=== PATIENT | female | born 1940 | race Two or more races ===

== ENCOUNTER 2017-11-21 08:57 | Day surgery (SDC) | payer OTHER ==
[~2017-11-21 08:57] MED LIST: ALDACTONE25 MG PO; LIPITOR20 MG PO; LOSARTAN-HCTZ1 EAC1 PO; NORVASC5 MG PO; SYNTHROID88 MCG PO
== END 2017-11-21 17:10 | disposition home or self-care (01) ==
LOC: AMB-ENDOS 08:57
DX: D12.2 Benign neoplasm of ascending colon (principal); D12.5 Benign neoplasm of sigmoid colon; K64.1 Second degree hemorrhoids

== ENCOUNTER 2019-02-05 07:00 | Day surgery (SDC) | payer OTHER | END 2019-02-05 12:30 | disposition home or self-care (01) | LOC: AMB-ENDOS 07:00 | DX: D12.4 Benign neoplasm of descending colon (principal); K64.1 Second degree hemorrhoids ==

== ENCOUNTER 2021-02-09 05:55 | Day surgery (SDC) | payer OTHER | END 2021-02-09 10:10 | disposition home or self-care (01) | LOC: AMB-ENDOS 05:55 | PROVIDERS: ATTEND Colon & Rectal Surgery | DX: D12.4 Benign neoplasm of descending colon (principal); K64.1 Second degree hemorrhoids; Z20.822 Contact with and (suspected) exposure to COVID-19 ==